=== PATIENT | female | born 1965 ===

== ENCOUNTER 2024-09-13 12:28 | Inpatient (IN) | payer OTHER ==
[2024-09-13] MEDS: ONDANSETRON 4 MG/2 ML VIAL IVPUSH ONE (13:40)
[2024-09-13] MEDS: FAMOTIDINE 20 MG/50 ML IVPB 20 MG/50 ML MG IVPB ONE (13:40)
[2024-09-13] MEDS ORDERED: ACETAMINOPHEN INJECTION 100 ML ONE (14:01)
[2024-09-13] MEDS ORDERED: FAMOTIDINE 20 MG/50 ML IVPB 20 MG/50 ML MG IVPB ONE (14:02)
[2024-09-13] MEDS ORDERED: ONDANSETRON 4 MG/2 ML VIAL ONE (14:02)
[2024-09-13 14:03] LABS: BASO % 0.8 % (0-2.0); EOS % 1.8 % (0-4.5); HEMATOCRIT 31.7 % (32.4-45.2); HEMOGLOBIN 9.9 GM/dL (10.7-15.3); LYMPH % 13.7 % (8-40); MCH 28.8 pg (25.7-33.7); MCHC 31.3 g/dl (32.0-36.0); MEAN PLT VOLUME 6.6 fl (7.5-11.1); MONO % 7.9 % (3.8-10.2); NEUT % 75.8 % (42.8-82.8); PLATELET COUNT 347 10^3/uL (134-434); RBC 3.45 M/mm3 (3.60-5.2); RDW 16.6 % (11.6-15.6); WHITE BLOOD COUNT 6.5 K/mm3 (4.0-10.0)
[2024-09-13 14:10] LABS: INR 0.99 (0.83-1.09); PROTHROMBIN TIME (PATIENT) 11.2 SEC (9.7-13.0)
[2024-09-13 14:11] LABS: CHLORIDE 106 mmol/L (98-107); POTASSIUM 4.2 mmol/L (3.5-5.1); SODIUM 139 mmol/L (136-145)
[2024-09-13 14:12] LABS: ACTIVATED PTT 31.9 SECONDS (25.2-36.5)
[2024-09-13 14:14] LABS: ALBUMIN 2.1 g/dl (3.4-5.0); ANION GAP 10 mmol/L (4-13); BLOOD UREA NITROGEN 42.5 mg/dL (7-18); CALCIUM 8.5 mg/dL (8.5-10.1); CO2 22 mmol/L (21-32); GLUCOSE,RANDOM 107 mg/dL (74-106); MAGNESIUM 2.2 mg/dL (1.8-2.4)
[2024-09-13 14:17] LABS: CREATININE 2.7 mg/dL (0.55-1.3); SGOT/AST 12 U/L (15-37); SGPT/ALT < 6 U/L (13-61)
[2024-09-13 14:19] LABS: BILIRUBIN,TOTAL 0.3 mg/dL (0.2-1)
[2024-09-13 14:20] LABS: TOT PROT 8.4 g/dl (6.4-8.2)
[2024-09-13 14:23] LABS: ALK PHOS 245 U/L (45-117)
[2024-09-13] MEDS: ACETAMINOPHEN 1000 MG/100 ML BAG IVPB ONE (14:49)
[2024-09-13 14:57] LABS: EPI CELLS >36 /uL (0-25.1); HYALINE CASTS 8 /uL (0-3.1); URINE APPEARANCE CLOUDY; URINE BACTERIA 66 /uL (0-1359); URINE BILIRUBIN NEGATIVE (NEGATIVE); URINE COLOR YELLOW; URINE GLUCOSE (UA) TRACE (NEGATIVE); URINE KETONE NEGATIVE (NEGATIVE); URINE LEUK ESTERASE 1+ (NEGATIVE); URINE NITRITE NEGATIVE (NEGATIVE); URINE PROTEIN 4+ (NEGATIVE); URINE UROBILINOGEN 0.2 mg/dL (0.2-1.0); URINE WBC 484 /uL (0-25.8)
[2024-09-13 15:24] LABS: URINE RBC 685 /uL (0-23.9); YEAST PRESENT (NEGATIVE)
[2024-09-13] MEDS ORDERED: METOCLOPRAMIDE HCL INJECTION 10 MG/2 ML VIAL ONE (16:23)
[2024-09-13] MEDS: METOCLOPRAMIDE HCL INJECTION 10 MG/2 ML VIAL IVPB ONE (16:36)
[2024-09-13] MEDS ORDERED: PIPERACILLIN/TAZOB 4.5 GM 4.5 GM/100 ML BAG IVPB ONE (16:59)
[2024-09-13] MEDS: PIPERACILLIN/TAZOB 4.5 GM 4.5 GM in DEXTROSE 5%-WATER 100 ML IVPB ONE (17:00)
[2024-09-13] MEDS ORDERED: VANCOMYCIN 1 GM PREMIX (F) 1 GM/200 ML BAG ONE (17:06)
[2024-09-13] MEDS: VANCOMYCIN 1 GM PREMIX (F) 1 GM/200 ML BAG IVPB ONE (17:07)
[2024-09-13] MEDS ORDERED: NIFEdipine E.R. 30 MG TABLET PO ONE (17:36)
[2024-09-13] MEDS ORDERED: NIFEdipine E.R 60 MG TABLET PO ONE (17:36)
[2024-09-13] MEDS: NIFEdipine E.R. 90 MG TABLET PO ONE (17:42)
[2024-09-13] MEDS: LABETALOL HCL 100 MG TABLET (FP) PO ONE ×2 (20:05→21:24)
[2024-09-13] MEDS ORDERED: SENNOSIDES 8.6MG TABLET (FP) PO ONE (21:02)
[2024-09-13] MEDS ORDERED: GABAPENTIN 100 MG CAPSULE ONE (21:02)
[2024-09-13] MEDS ORDERED: ZINC SULFATE 220 MG CAPSULE (FP) ONE (21:02)
[2024-09-13] MEDS: SENNOSIDES 8.6MG TABLET (FP) PO SCH (21:08)
[2024-09-13] MEDS: GABAPENTIN 100 MG CAPSULE PO SCH (21:08)
[2024-09-13] MEDS: URSODIOL 300 MG CAPSULE PO SCH (21:08)
[2024-09-13] MEDS: ZINC OXIDE 20% TOPICAL OINTMENT 30 GM TUBE TP SCH (21:08)
[2024-09-13] MEDS: PATIENT'S OWN MEDICATION (NON-FORMULARY) (Aa/Hydrolyzed Collagen, Whey [Lps 15-30 Liquid] PO SCH (21:09)
[2024-09-13] MEDS ORDERED: TRIMETHOBENZAMIDE HCL 200MG/2ML INJ IM PRN (21:21)
[2024-09-13] MEDS ORDERED: QUEtiapine FUMARATE 25 MG TABLET ONE (22:10)
[2024-09-13] MEDS: QUEtiapine FUMARATE 50 MG TABLET PO SCH (22:13)
[2024-09-13] MEDS: LABETALOL HCL 200 MG TABLET (FP) PO SCH (22:43)
[2024-09-14] MEDS ORDERED: PIPERACILLIN/TAZOB 3.375 GM 3.375 GM/50 ML BAG IVPB ONE (00:19)
[2024-09-14] MEDS: PIPERACILLIN/TAZOB 4.5 GM 4.5 GM in DEXTROSE 5%-WATER 100 ML IVPB SCH (00:24)
[2024-09-14] MEDS: ACETAMINOPHEN 1000 MG/100 ML BAG IVPB PRN ×2 (04:28→10:34)
[2024-09-14 07:20] LABS: BASO % 0.5 % (0-2.0); EOS % 2.1 % (0-4.5); HEMATOCRIT 28.2 % (32.4-45.2); HEMOGLOBIN 8.9 GM/dL (10.7-15.3); LYMPH % 15.4 % (8-40); MCH 28.9 pg (25.7-33.7); MCHC 31.6 g/dl (32.0-36.0); MEAN CELL VOLUME 91.4 fl (80-96); MEAN PLT VOLUME 6.7 fl (7.5-11.1); MONO % 9.9 % (3.8-10.2); NEUT % 72.1 % (42.8-82.8); PLATELET COUNT 277 10^3/uL (134-434); RBC 3.09 M/mm3 (3.60-5.2); RDW 16.5 % (11.6-15.6); WHITE BLOOD COUNT 6.6 K/mm3 (4.0-10.0)
[2024-09-14 07:29] LABS: CHLORIDE 106 mmol/L (98-107); SODIUM 137 mmol/L (136-145)
[2024-09-14 07:37] LABS: ALBUMIN 1.8 g/dl (3.4-5.0); CALCIUM 7.9 mg/dL (8.5-10.1)
[2024-09-14 07:38] LABS: ANION GAP 8 mmol/L (4-13); BLOOD UREA NITROGEN 41.7 mg/dL (7-18); CO2 23 mmol/L (21-32); GLUCOSE,RANDOM 155 mg/dL (74-106); MAGNESIUM 2.1 mg/dL (1.8-2.4)
[2024-09-14 07:40] LABS: SGOT/AST 10 U/L (15-37); SGPT/ALT < 6 U/L (13-61)
[2024-09-14 07:41] LABS: CREATININE 2.8 mg/dL (0.55-1.3); PHOSPHOROUS 3.9 mg/dL (2.5-4.9)
[2024-09-14 07:42] LABS: BILIRUBIN,TOTAL 0.3 mg/dL (0.2-1)
[2024-09-14 07:53] LABS: ALK PHOS 192 U/L (45-117)
[2024-09-14] MEDS ORDERED: SEVELAMER CARBONATE 800 MG TAB (FP) ONE ×3 (08:14→18:01)
[2024-09-14] MEDS: AMINO ACIDS/PROTEIN HYDROLYS 30 ML LIQUID.PKT PO SCH (08:25)
[2024-09-14] MEDS: SEVELAMER CARBONATE 800 MG TAB (FP) PO SCH (08:25)
[2024-09-14] MEDS: INSULIN ASPART SLIDING SCALE (NOVOLOG) 1 VIAL SQ SCH (08:27)
[2024-09-14] MEDS ORDERED: POLYETHYLENE GLYCOL (HEALTHYLAX) 3350 17 GM PACKET PO SCH (10:00)
[2024-09-14] MEDS ORDERED: POLYETHYLENE GLYCOL (HEALTHYLAX) 3350 17 GM PACKET ONE (10:17)
[2024-09-14] MEDS ORDERED: PIPERACILLIN/TAZOB 4.5 GM 4.5 GM/100 ML BAG IVPB ONE (10:18)
[2024-09-14] MEDS ORDERED: HEPARIN NA (PORCINE) 5,000 UNITS/ML 1ML VIAL ONE (10:18)
[2024-09-14] MEDS ORDERED: ASPIRIN 81 MG CHEWABLE TABLETS ONE (10:18)
[2024-09-14] MEDS ORDERED: ACETAMINOPHEN INJECTION 100 ML ONE (10:19)
[2024-09-14] MEDS: POLYETHYLENE GLYCOL (HEALTHYLAX) 3350 17 GM PACKET PO SCH (10:35)
[2024-09-14] MEDS: ASPIRIN 81 MG CHEWABLE TABLETS PO SCH (10:35)
[2024-09-14] MEDS: HEPARIN NA (PORCINE) 5,000 UNITS/ML 1ML VIAL SQ SCH (10:35)
[2024-09-14] MEDS: PIPERACILLIN/TAZOB 4.5 GM 4.5 GM/100 ML BAG IVPB SCH (10:58)
[2024-09-14] MEDS: BUDESONIDE/FORMETEROL FUMARATE 160/4.5 mcg INHALER IH SCH (12:00)
[2024-09-14] MEDS: LABETALOL HCL 100 MG TABLET (FP) PO SCH (15:56)
[2024-09-15 00:04] VITALS: RESP 18
[2024-09-15 08:37] LABS: BASO % 0.5 % (0-2.0); HEMATOCRIT 28.7 % (32.4-45.2); HEMOGLOBIN 9.3 GM/dL (10.7-15.3); LYMPH % 12.4 % (8-40); MCH 29.4 pg (25.7-33.7); MCHC 32.3 g/dl (32.0-36.0); MEAN PLT VOLUME 6.4 fl (7.5-11.1); NEUT % 79.1 % (42.8-82.8); PLATELET COUNT 276 10^3/uL (134-434); RBC 3.15 M/mm3 (3.60-5.2); RDW 16.8 % (11.6-15.6); WHITE BLOOD COUNT 6.8 K/mm3 (4.0-10.0)
[2024-09-15 09:09] LABS: CHLORIDE 108 mmol/L (98-107); POTASSIUM 4.2 mmol/L (3.5-5.1); SODIUM 138 mmol/L (136-145)
[2024-09-15 09:19] LABS: ALBUMIN 1.9 g/dl (3.4-5.0); ANION GAP 8 mmol/L (4-13); CALCIUM 7.9 mg/dL (8.5-10.1); CO2 23 mmol/L (21-32); GLUCOSE,RANDOM 127 mg/dL (74-106); MAGNESIUM 2.2 mg/dL (1.8-2.4)
[2024-09-15 09:22] LABS: CREATININE 2.8 mg/dL (0.55-1.3); SGOT/AST 13 U/L (15-37)
[2024-09-15 09:23] LABS: PHOSPHOROUS 4.4 mg/dL (2.5-4.9)
[2024-09-15 09:24] LABS: BILIRUBIN,TOTAL 0.4 mg/dL (0.2-1); TOT PROT 7.5 g/dl (6.4-8.2)
[2024-09-15 09:25] LABS: ALK PHOS 195 U/L (45-117); SGPT/ALT < 6 U/L (13-61)
[2024-09-15] MEDS: hydrALAZINE HCL 25 MG TABLET (FP) PO SCH (11:50)
[2024-09-15] MEDS: NIFEdipine E.R. 90 MG TABLET PO SCH (11:53)
[2024-09-15] MEDS: LABETALOL HCL 200 MG TABLET (FP) PO ONE (13:23)
[2024-09-15] MEDS: oxyCODONE HCL 5 MG TABLET PO ONE (13:53)
[2024-09-15 14:31] VITALS: BMI 14.6
[2024-09-15] MEDS: oxyCODONE HCL 5 MG TABLET PO PRN (17:07)
[2024-09-15] MEDS: LABETALOL HCL 200 MG TABLET (FP) PO SCH (23:26)
[2024-09-16 09:46] LABS: BASO % 0.5 % (0-2.0); EOS % 3.1 % (0-4.5); HEMOGLOBIN 8.7 GM/dL (10.7-15.3); LYMPH % 21.9 % (8-40); MCH 29.2 pg (25.7-33.7); MCHC 32.1 g/dl (32.0-36.0); MEAN CELL VOLUME 90.8 fl (80-96); MEAN PLT VOLUME 6.5 fl (7.5-11.1); MONO % 5.3 % (3.8-10.2); NEUT % 69.2 % (42.8-82.8); PLATELET COUNT 261 10^3/uL (134-434); RBC 2.98 M/mm3 (3.60-5.2); RDW 16.4 % (11.6-15.6)
[2024-09-16 10:11] LABS: CHLORIDE 110 mmol/L (98-107); POTASSIUM 3.9 mmol/L (3.5-5.1); SODIUM 140 mmol/L (136-145)
[2024-09-16 10:23] LABS: ALBUMIN 1.8 g/dl (3.4-5.0); BLOOD UREA NITROGEN 49.4 mg/dL (7-18); CALCIUM 7.6 mg/dL (8.5-10.1); GLUCOSE,RANDOM 94 mg/dL (74-106)
[2024-09-16 10:24] LABS: ANION GAP 7 mmol/L (4-13); CO2 23 mmol/L (21-32); MAGNESIUM 2.2 mg/dL (1.8-2.4)
[2024-09-16 10:26] LABS: CREATININE 3.1 mg/dL (0.55-1.3); PHOSPHOROUS 4.3 mg/dL (2.5-4.9); SGOT/AST 11 U/L (15-37)
[2024-09-16 10:29] LABS: BILIRUBIN,TOTAL 0.4 mg/dL (0.2-1); SGPT/ALT < 6 U/L (13-61); TOT PROT 7.2 g/dl (6.4-8.2)
[2024-09-16 10:30] LABS: ALK PHOS 168 U/L (45-117)
[2024-09-16] MEDS: ERTAPENEM SODIUM 1 GM in SODIUM CHLORIDE 50 ML IVPB SCH (10:37)
[2024-09-16] MEDS: MULTIVITAMINS (DAILY MVI) TABLET (FP) PO SCH (10:39)
[2024-09-17] MEDS: AMOX TR/POT CLAV 250MG/125MG TABLETS PO SCH (10:16)
[2024-09-17 11:38] LABS: BASO % 0.4 % (0-2.0); EOS % 3.4 % (0-4.5); HEMATOCRIT 30.5 % (32.4-45.2); HEMOGLOBIN 9.7 GM/dL (10.7-15.3); LYMPH % 18.1 % (8-40); MCH 28.9 pg (25.7-33.7); MCHC 31.9 g/dl (32.0-36.0); MEAN CELL VOLUME 90.7 fl (80-96); MEAN PLT VOLUME 6.7 fl (7.5-11.1); MONO % 5.7 % (3.8-10.2); NEUT % 72.4 % (42.8-82.8); PLATELET COUNT 272 10^3/uL (134-434); RBC 3.37 M/mm3 (3.60-5.2); RDW 16.4 % (11.6-15.6); WHITE BLOOD COUNT 6.7 K/mm3 (4.0-10.0)
[2024-09-17 12:05] LABS: CHLORIDE 110 mmol/L (98-107); POTASSIUM 3.9 mmol/L (3.5-5.1); SODIUM 140 mmol/L (136-145)
[2024-09-17 12:07] LABS: CALCIUM 7.7 mg/dL (8.5-10.1)
[2024-09-17 12:08] LABS: ANION GAP 8 mmol/L (4-13); BLOOD UREA NITROGEN 50.2 mg/dL (7-18); CO2 22 mmol/L (21-32); GLUCOSE,RANDOM 74 mg/dL (74-106); MAGNESIUM 2.1 mg/dL (1.8-2.4)
[2024-09-17 12:09] LABS: ALBUMIN 1.8 g/dl (3.4-5.0)
[2024-09-17 12:10] LABS: SGPT/ALT < 6 U/L (13-61)
[2024-09-17 12:11] LABS: CREATININE 3.4 mg/dL (0.55-1.3); PHOSPHOROUS 4.4 mg/dL (2.5-4.9); SGOT/AST 12 U/L (15-37)
[2024-09-17 12:12] LABS: BILIRUBIN,TOTAL 1.3 mg/dL (0.2-1); TOT PROT 7.4 g/dl (6.4-8.2)
[2024-09-17 12:13] LABS: ALK PHOS 174 U/L (45-117)
[2024-09-17 20:24] VITALS: BP 112/46; PULSE 85; TEMP 98.5
== END 2024-09-17 20:08 | DRG 139 ==
LOC: JER 12:28 → INTOOBSV 17:36 → UNDOADMIN 17:36 → JERBED 17:36 → J8W 09-14 19:43 → OBSVTOIN 09-16 11:13
PROVIDERS: ADMIT Internal Medicine; ATTEND Nurse Practitioner Acute Care
DX: J18.9 Pneumonia, unspecified organism (principal); I16.0 Hypertensive urgency; I12.9 Hypertensive chronic kidney disease with stage 1 through stage 4 chronic kidney disease, or unspecified chronic kidney disease; E11.22 Type 2 diabetes mellitus with diabetic chronic kidney disease; N18.30 Chronic kidney disease, stage 3 unspecified; E43 Unspecified severe protein-calorie malnutrition; I69.354 Hemiplegia and hemiparesis following cerebral infarction affecting left non-dominant side; Z68.1 Body mass index [BMI] 19.9 or less, adult; E78.5 Hyperlipidemia, unspecified; I24.89 Other forms of acute ischemic heart disease; R10.9 Unspecified abdominal pain; H54.7 Unspecified visual loss; R64 Cachexia; Z74.09 Other reduced mobility; Z89.421 Acquired absence of other right toe(s)
CPT/HCPCS: 0241U-QW; 36415; 71045-TC-FY; 71250-TC; 74176-TC; 80053; 81003; 82962; 83690; 83735; 84100; 84484; 85025; 85610; 85730; 86850; 86900; 86901; 87086; 93005; 93010; 97161-GP; 99285-25; G0378; J0131; J1644